=== PATIENT | female | born 1950 | race African-American/Black ===

== ENCOUNTER → 2017-08-24 | Outpatient (CLI) | payer OTHER ==
[~2017-08-24] MED LIST: BENTYL10 MG PO; CALCIUM 500 MG1 EACH PO; CIPRO500 MG PO; COLACE100 MG PO; CYCLOBENZAPRINE10 MG PO; FLAGYL500 MG PO; FLEXERIL10 MG PO; LOPRESSOR25 MG PO; LOTREL 5/201 CAPSULE PO; NORCO 5/3251 TABLET PO; VITAMIN D31000 UNIT PO; WOMEN'S DAILY1 EAC3 PO; ZOFRAN4 MG PO
== END | disposition home or self-care (01) ==
LOC: CDC 14:03
DX: Z01.810 Encounter for preprocedural cardiovascular examination (principal); I10 Essential (primary) hypertension; M25.129 Fistula, unspecified elbow
CPT/HCPCS: 93000